=== PATIENT | female | born 1940 | race Two or more races ===

== ENCOUNTER → 2019-01-28 | Outpatient (CLI) | payer MEDICARE, BC ==
--- NOTE | 2019-01-29 08:48 | CT ---
EXAMINATION TYPE: CT abdomen pelvis wo/w con DATE OF EXAM: 01/28/2019 HISTORY: weight loss CT DLP: 600.3mGycm Automated Exposure Control for Dose Reduction was Utilized. CONTRAST: CT scan of the abdomen and pelvis is performed with IV Contrast, patient injected with 80cc mL of Iso ryan 300. COMPARISON: None. FINDINGS: LUNG BASES: Ascending thoracic aorta is within normal limits measuring 3.0 cm. Severe [place] coronary calcifications and post CABG changes are partially visualized of the heart. LIVER/GB: Scattered benign calcified granulomas are seen within the liver. Gallbladder is contracted. PANCREAS: The pancreas is markedly suboptimally evaluated secondary to paucity of intra-abdominal fat and pancreatic atrophy. There is no discrete evidence of pancreatic ductal dilatation. However there is some ill-defined hypodensity near the pancreatic head and image 34 measuring approximately 2.3 x 1.6 cm. MRI of the abdomen, hepatic mass protocol is recommended for further evaluation. SPLEEN: Benign splenic granulomas are seen. ADRENALS: No significant abnormality is seen. KIDNEYS: Linear calcifications within the inferior right kidney are likely on the basis of renal uma rial calcifications given their linear morphology. 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 Exophytic right renal cyst emanates from the l ower pole measuring 2.6 cm. On contrast enhanced images there is delayed enhancement of the left kidney. The right kidney demonst rates a cortical scar laterally midpole. Delayed images demonstrate a too small to accurately charact erize lower pole possible cyst on image 22. BOWEL: There is severe colonic fecal stasis and some prominent loops of small bowel overall indicativ e of increased transit time throughout the and bowel. Severe colonic fecal stasis severely limits amrik luation of the bowel. Oral contrast does not extend into the large bowel also limiting evaluation. UTERUS/ADNEXA: There is a right adnexal cystic lesion measuring 2.5 x 3.3 cm that is abnormal for a p atient of this age group. Pelvic ultrasound is recommended for further evaluation. Pelvic floor relax ation is seen. LYMPH NODES: No greater than 1cm abdominal or pelvic lymph nodes are appreciated. OSSEOUS STRUCTURES: There is diffuse osseous demineralization present. Multilevel compression deformi ties are seen at L3, L2, L1, T12, T11, and T10. Some of these have kyphoplasty change. OTHER: There is extensive atheromatous change of the abdominal aorta and its branches.. IMPRESSION: 1. Markedly suboptimal evaluation of the pancreas however there is fullness near the pancreatic head and in this patient with abnormal weight loss MRI pancreatic mass protocol is recommended. No discret e ductal dilatation is seen of the pancreatic duct. 2. Marked degree colonic fecal stasis and prominent loops of small bowel indicating increased transit time throughout the bowel. 3. Cystic right adnexal mass measuring 3.3 cm. Although this is small in size pelvic ultrasound is re commended to evaluate for any internal complexity in this postmenopausal female. 4. Pelvic floor relaxation is noted. 5. Multiple compression deformities are seen, some with prior kyphoplasty change.
== END | disposition home or self-care (01) ==
LOC: RADCTMAIN 15:42
PROVIDERS: ATTEND Internal Medicine Gastroenterology
DX: N81.89 Other female genital prolapse (principal); K59.8 Other specified functional intestinal disorders; R19.09 Other intra-abdominal and pelvic swelling, mass and lump; R63.4 Abnormal weight loss
CPT/HCPCS: 82565; 84520; 74178; 36415; Q9967

== ENCOUNTER → 2019-02-25 | Outpatient (CLI) | payer MEDICARE, BC ==
--- NOTE | 2019-02-25 13:04 | MR ---
EXAMINATION TYPE: MR pancreas wo/w con DATE OF EXAM: 02/25/2019 COMPARISON: CT abdomen and pelvis January 28, 2019 HISTORY: Abnormal CT, pancreatic mass CONTRAST: Standard multiplanar, multisequence MRI departmental protocol utilizing 4.5 mL intravenous Gadavist g adolinium contrast. FINDINGS: Similar to CT exam is suboptimal as patient has very little intra-abdominal fat. Artifact f rom overlying sternal wires is present. Liver is normal in size. Gallbladder is better distended on M RI. It is immediately anterior superior to a thin-walled elongated simple appearing cyst lower pole r ight kidney. Common bile duct measures up to 8 mm the robi hepatis which is upper limits of normal a nd correlates with CT. No intrahepatic or extra hepatic biliary dilatation is identified. Pancreas is normal in size with visualization of duct measuring up to 3 mm. There is no obvious solid or cystic mass with particular attention to the pancreatic head at area of concern. Common bile duct cannot be tracked inferiorly to level of the pancreatic duct on coronal image 16 suggesting possible normal pippa iant or 2 openings in the second portion of the duodenum. I do not see evidence of suspicious dilatat ion or mass. A few scattered simple-appearing thin-walled cysts throughout the right kidney are also identified. T here is marked cortical thinning and diminished size of the left kidney with scattered simple-appeari ng thin-walled cysts system with end-stage chronic medical renal disease. Multiple compression type f racture formation at the thoracolumbar spine are redemonstrated. No bowel dilatation. IMPRESSION: Correlating with CT, suboptimal study due to lack of intra-abdominal fat as well as more motion on MRI versus CT. No obvious pancreatic head mass identified. No ductal dilatation noted.
== END | disposition home or self-care (01) ==
LOC: RADMRIMAIN 11:04
DX: K86.89 Other specified diseases of pancreas (principal)
CPT/HCPCS: 74183; A9585